=== PATIENT | female | born 2000 | race Caucasian/White ===

== ENCOUNTER 2022-09-10 09:58 | Emergency (ER) | payer OTHER ==
[~2022-09-10] VITALS: Ht 157.5 cm; Wt 68.0 kg
[2022-09-10] MEDS ORDERED: RINGERS SOLUTION,LACTATED 1,000 ML IV ONE (10:11)
[2022-09-10] MEDS ORDERED: ACET-784 PO (10:14)
[2022-09-10 10:30] VITALS: BP 121/72
[2022-09-10 10:34] LABS: APPEARANCE,URINE HAZY (CLEAR); BILIRUBIN,URINE NEGATIVE (NEGATIVE); GLUCOSE, URINE (UA) NEGATIVE (NEGATIVE); KETONES,URINE TRACE mg/dL (NEGATIVE); LEUKOCYTE ESTERASE ,URINE LARGE (NEGATIVE); NITRATE,URINE NEGATIVE (NEGATIVE); OCCULT BLOOD,URINE SMALL (NEGATIVE); PH,URINE 7.5 (5.0-8.0); PROTEIN,URINE 30-70 mg/dL (NEGATIVE); UROBILINOGEN,URINE <=1.0 mg/dL (<=1.0)
[2022-09-10 11:00] LABS: BACTERIA,URINE Few /HPF (None Seen); SQUAMOUS EPITHELIAL CELL,UR Few /LPF (None Seen); WBC,URINE 26-50 /HPF (0-5)
== END 2022-09-10 10:40 | disposition short-term general hospital (02) ==
LOC: EMS 10:09
DX: O60.03 Preterm labor without delivery, third trimester (principal); Z3A.34 34 weeks gestation of pregnancy
CPT/HCPCS: 99285; 87086; 87186; 76815; 81001; 80307 ×9; J7120